=== PATIENT | female | born 1925 | race Caucasian/White ===

== ENCOUNTER 2017-01-04 16:10 | Emergency (ER) | payer OTHER, MEDICARE ==
[~2017-01-04 16:10] MED LIST: ASPI-435 PO; ATOR-22 PO; CALCTAB13 PO; COEN1CAP17 PO; LOSA100T65 PO; PROP120C PO; TMB/100 PO
[2017-01-04 16:16] VITALS: TEMP 36.6; Ht 160 cm
[2017-01-04] MEDS ORDERED: SODIUM CHLORIDE 0.9% 1000ML 1,000 ML IV STA (16:58)
[2017-01-04] MEDS ORDERED: MECLIZINE HCL 25 MG TAB PO STA (16:58)
[2017-01-04] MEDS ORDERED: HydrALAZINE HCL 20 MG/ML VIAL IV. STA (17:00)
--- NOTE | 2017-01-04 17:00 | EMERGENCY ROOM VISIT NOTE ---
History Report prepared by [place]: Luis Patel Under the Supervision of: Dr. Chivo Kaplan M.D. First contact with patient: 16:48 Chief Complaint: DIZZY Stated Complaint: DIZZY;NAUSEA;HIGH BLOOD PRESSURE Nursing Triage Summary: Dizzy and nausea all day. States started today. History of Present Illness The patient is an 89 year old female who presents to the Emergency Room with complaints of intermittent dizzy spells that started this morning. Per the patient's daughter, the patient started to not feel well earlier in the week. The patient says that starting after breakfast, she started having "vertigo dizzy spells" with nausea where the room is spinning and she feels like she is "going around in circles". The patient adds that she has had a bit of a headache and she did vomit once today. She says that she currently has no nausea but has dizziness if she turns her head too fast. The patient states that she still has been able to walk today. She denies any weakness, loss of consciousness, numbness, urinary symptoms, rashes or fevers. Any speech difficulties were denied on behalf of the patient. The patient says that her blood pressure fluctuates often, but she did take her Losartan this morning. The patient adds that she took her Flecainide and Propranolol this morning. She has no history of strokes and she is not on any blood thinners. Source of History: patient, family Onset: This morning Position: other (global - dizzy) Quality: other (room spinning) Timing: intermittent Modifying Factors (Worsening): movement Associated Symptoms: + headache, + nausea, + vomiting, No LOC, No fevers, No urinary symptoms, No weakness, No numbness, No rash Note: Associated symptoms: Speech difficulties denied. Review of Systems See HPI for pertinent positives & negatives. A total of 10 systems reviewed and were otherwise negative. Past Medical & Surgical Medical Problems: (1) Afib (2) Glacuoma (3) Hypertension Surgical Problems: (1) H/O bilateral hip replacements Family History Diabetes mellitus Hypertension Social History Smoking Status: Never Smoker Drug Use: none Marital Status: Housing Status: lives with family Occupation Status: retired Current/Historical Medications Scheduled Aspirin (Aspirin 81), 81 MG PO DAILY Cephalexin Monohydrate (Keflex), 500 MG PO TID Coenzyme Q10 (Ubidecarenone) (Co Q 10), 100 MG PO DAILY Flecainide Acetate (Tambocor), 100 MG PO Q12 Losartan Potassium (Cozaar), 100 MG PO DAILY Miscellaneous Medications Propranolol Hcl (Propranolol Hcl Er), 120 MG PO Allergies Coded Allergies: Meperidine (Verified Adverse Reaction, Intermediate, TACHYCARDIA, 01/04/17) Codeine (Verified Adverse Reaction, Mild, DIZZY, NAUSEA, 01/04/17) Physical Exam Vital Signs Date Time Temp Pulse Resp B/P (MAP) Pulse Ox O2 Delivery O2 Flow Rate FiO2 01/04/17 19:44 66 20 144/54 96 Room Air 01/04/17 18:37 66 20 149/59 98 Room Air 01/04/17 17:40 67 20 165/57 97 Room Air 01/04/17 16:16 36.6 65 18 218/77 99 Room Air Physical Exam GENERAL: Patient is mildly dehydrated appearing and in no acute distress. HEENT: No acute trauma, normocephalic atraumatic, mucous membranes moist, no nasal congestion, no scleral icterus. EARS: TM's clear bilaterally. NECK: No stridor, no adenopathy, no meningismus, trachea is midline. LUNGS: No dyspnea. Clear to auscultation and equal bilaterally. No wheeze, no rhonchi. HEART: Regular rate and rhythm. No murmurs, rubs, gallops appreciated. ABDOMEN: Soft, nontender, bowel sounds positive, no masses appreciated, no peritonitis. BACK: No midline tenderness, no CVA tenderness EXTREMITIES: Normal motion all extremities, no cyanosis, no edema. NEUROLOGIC: Alert and oriented, no acute motor or sensory deficits, no focal weakness, cranial nerves grossly intact. SKIN: No rash, no jaundice, no diaphoresis. Medical Decision & Procedures ER Provider Diagnostic Interpretation: Radiology results and stated below per my review and radiologist interpretation: CT OF THE HEAD WITHOUT CONTRAST CLINICAL HISTORY: New onset vertigo. COMPARISON STUDY: Head CT December 18, 2013. CT DOSE: 537.48 mGy.cm TECHNIQUE: Helical axial images of the head were obtained without IV contrast. Automated exposure control was utilized for the study. A dose lowering technique was utilized adhering to the principles of ALARA. FINDINGS: No acute intracranial hemorrhage, midline shift or mass effect is present. Brain volume is normal for age. Ventricular system is stable. Basilar cisterns are patent. There are no extra-axial collections. White-white differentiation is preserved. There are no CT findings to suggest acute dural sinus thrombosis or acute territorial infarct. There is minimal mucosal thickening of the ethmoid sinuses. There are no significant calvarial abnormalities. IMPRESSION: No acute intracranial findings. Electronically signed by: Yogesh Mojica M.D. 01/04/2017 6:20 PM Dictated Date/Time: 01/04/2017 6:18 PM CHEST ONE VIEW PORTABLE CLINICAL HISTORY: Vertigo COMPARISON STUDY: Chest radiograph December 18, 2013. FINDINGS: Lung volumes are normal. There is no pneumothorax or pleural effusion. Linear bibasilar opacities suggest atelectasis. There is no evidence of pulmonary edema. Cardiomediastinal silhouette is stable. IMPRESSION: No acute cardiopulmonary findings. Electronically signed by: Yogesh Mojica M.D. 01/04/2017 6:06 PM Dictated Date/Time: 01/04/2017 6:05 PM Laboratory Results 01/04/17 17:10 Red Blood Count 3.90, Mean Corpuscular Volume 97.9, Mean Corpuscular Hemoglobin 32.6, Mean Corpuscular Hemoglobin Concent 33.2, Mean Platelet Volume 10.5, Neutrophils (%) (Auto) 86.0, Lymphocytes (%) (Auto) 8.7, Monocytes (%) (Auto) 3.7, Eosinophils (%) (Auto) 1.3, Basophils (%) (Auto) 0.2, Neutrophils # (Auto) 7.15, Lymphocytes # (Auto) 0.72, Monocytes # (Auto) 0.31, Eosinophils # (Auto) 0.11, Basophils # (Auto) 0.02 01/04/17 17:10 Test 01/04/17 17:10 01/04/17 18:45 White Blood Count 8.32 K/uL (4.8-10.8) Red Blood Count 3.90 M/uL (4.2-5.4) Hemoglobin 12.7 g/dL (12.0-16.0) Hematocrit 38.2 % (37-47) Mean Corpuscular Volume 97.9 fL (80-100) Mean Corpuscular Hemoglobin 32.6 pg (25-34) Mean Corpuscular Hemoglobin Concent 33.2 g/dl (32-36) Platelet Count 166 K/uL (130-400) Mean Platelet Volume 10.5 fL (7.4-10.4) Neutrophils (%) (Auto) 86.0 % Lymphocytes (%) (Auto) 8.7 % Monocytes (%) (Auto) 3.7 % Eosinophils (%) (Auto) 1.3 % Basophils (%) (Auto) 0.2 % Neutrophils # (Auto) 7.15 K/uL (1.4-6.5) Lymphocytes # (Auto) 0.72 K/uL (1.2-3.4) Monocytes # (Auto) 0.31 K/uL (0.11-0.59) Eosinophils # (Auto) 0.11 K/uL (0-0.5) Basophils # (Auto) 0.02 K/uL (0-0.2) RDW Standard Deviation 46.2 fL (36.4-46.3) RDW Coefficient of Variation 12.9 % (11.5-14.5) Immature Granulocyte % (Auto) 0.1 % Immature Granulocyte # (Auto) 0.01 K/uL (0.00-0.02) Anion Gap 3.0 mmol/L (3-11) Estimated GFR () 46.4 Estimated GFR (Non- 40.0 BUN/Creatinine Ratio 17.6 (10-20) Calcium Level 8.9 mg/dl (8.5-10.1) Total Bilirubin 0.7 mg/dl (0.2-1) Aspartate Amino Transf (AST/SGOT) 18 U/L (15-37) Alanine Aminotransferase (ALT/SGPT) 27 U/L (12-78) Alkaline Phosphatase 70 U/L (45-117) Troponin I < 0.015 ng/ml (0-0.045) Total Protein 7.6 gm/dl (6.4-8.2) Albumin 3.7 gm/dl (3.4-5.0) Globulin 3.9 gm/dl (2.5-4.0) Albumin/Globulin Ratio 0.9 (0.9-2) Urine Color YELLOW Urine Appearance CLEAR (CLEAR) Urine pH 8.0 (4.5-7.5) Urine Specific Ava 1.016 (1.000-1.030) Urine Protein 1+ (NEG) Urine Glucose (UA) TRACE (NEG) Urine Ketones TRACE (NEG) Urine Occult Blood NEG (NEG) Urine Nitrite POS (NEG) Urine Bilirubin NEG (NEG) Urine Urobilinogen NEG (NEG) Urine Leukocyte Esterase NEG (NEG) Urine WBC (Auto) 1-5 /hpf (0-5) Urine RBC (Auto) 0-4 /hpf (0-4) Urine Hyaline Casts (Auto) 0 /lpf (0-5) Urine Epithelial Cells (Auto) 10-20 /lpf (0-5) Urine Bacteria (Auto) 4+ (NEG) Laboratory results as reviewed by me. Medications Administered Medications (Trade) Dose Ordered Sig/Dorothy Route Start Time Stop Time Status Last Admin Dose Admin Sodium Chloride 1,000 ml @ 999 mls/hr Q1H1M STAT IV 01/04/17 16:58 01/04/17 17:58 DC 01/04/17 17:27 999 MLS/HR Meclizine HCl (Antivert Tab) 12.5 mg NOW STAT PO 01/04/17 16:58 01/04/17 17:00 DC 01/04/17 17:27 12.5 MG Hydralazine HCl (HydrALAZINE INJ) 10 mg NOW STAT IV. 01/04/17 17:00 01/04/17 17:01 DC 01/04/17 17:27 10 MG Cephalexin Monohydrate (Keflex Cap) 500 mg NOW ONCE PO 01/04/17 19:45 01/04/17 19:46 DC 01/04/17 19:56 500 MG Meclizine HCl (Antivert 25MG Home Pack) 1 homepack UD ONCE PO 01/04/17 19:45 01/04/17 19:46 DC 01/04/17 19:56 1 HOMEPACK ECG Indication: nausea Rate (beats per minute): 59 Rhythm: sinus bradycardia Findings: no acute ischemic change, no ectopy ED Course 1648: The patient was evaluated in room B3B. A complete history and physical exam was performed. 1657: Ordered Antivert Tab 12.5 mg PO, NSS 1000 ml @ 999 mls/hr IV. 1699: Ordered Hydralazine Inj 10 mg IV. 1833: I revaluated the patient and she feels much better and has no further dizziness. Her blood pressure is in the 140s systolic. 1932: I reevaluated the patient and she is feeling fine and would like to go home. I advised her to follow up with her primary care physician regarding her blood pressure and rechecking her urine. I discussed with her and her daughter- in-law at length about symptoms that would require emergency return, including but no limited to stroke symptoms. The patient will be discharged. 1944: Ordered Antivert 25MG Home Pack 1 homepack PO, Keflex Cap 500 mg PO. Medical Decision Differential diagnoses include Benign positional vertigo, Dehydration, Hypovolemia, Anemia, Tumor, Infection, Hypoglycemia, Electrolyte abnormalities, Cardiac sources, Intracerebral event, Toxicologic, Neurologic, as well as others were entertained. 89 yr old female arrives with vertiginous symptoms, hypertension and fatigue over last few days. Notes no urinary burning but has frequent urination secondary to prolapsed bladder. She notes no weakness, slurred speech nor facial droop. Daughter at bedside notes she is without these as well. She on talking does talk a bit out of right side of mouth though no weakness left face , she attributes this to new, poorly fitting dentures. BP easily controlled. She is feeling much better and in no distress. Work-up benign other than there are 4+ bacteria plus nits in urine, thus I suspect underlying UTI, which may be cause of all of this. Stressed rest (states she overworks daily), fluids, and follow up with PCP. Keflex with PRN to go meclizine. Reviewed at length symptoms and findings requiring RTED. Patient comfortable with plan. Medication Reconcilliation Current Medication List: was personally reviewed by me Blood Pressure Screening Patient's blood pressure: Elevated blood pressure Blood pressure disposition: Referred to PCP Impression Primary Impression: Urinary tract infection Additional Impressions: Vertigo Hypertension Scribe Attestation The scribe's documentation has been prepared under my direction and personally reviewed by me in its entirety. I confirm that the note above accurately reflects all work, treatment, procedures, and medical decision making performed by me. Departure Information Dispostion Home / Self-Care Prescriptions Cephalexin Monohydrate (Keflex) 500 Mg Cap 500 MG PO TID for 7 Days, #21 CAP Prov: Chivo Kaplan M.D. 01/04/17 Referrals Last Rowell MD (PCP) Patient Instructions ED Vertigo Unspecified, My [facility] Additional Instructions Your blood pressure was elevated during this visit. This is quite common in many people who are being evaluated in the Emergency Department for many reasons. However, it is important that you have your Primary Care Provider recheck your blood pressure and discuss whether treatment will be needed. retirement elevated blood pressure can lead to strokes, heart attacks, kidney failure amongst other medical issues. If you develop severe headaches, chest pain, weakness in arms or legs, or other concerning symptoms call 911. Problem Qualifiers Primary Impression: Urinary tract infection Urinary tract infection type: site unspecified Hematuria presence: without hematuria Qualified Codes: N39.0 - Urinary tract infection, site not specified Additional Impressions: Hypertension Hypertension type: unspecified Qualified Codes: I10 - Essential (primary) hypertension
[2017-01-04 17:20] LABS: BASO % 0.2 %; BASO ABS # 0.02 K/uL (0-0.2); COMPLETE YES; EOS % 1.3 %; HEMATOCRIT 38.2 % (37-47); IG% 0.1 %; LYMPH % 8.7 %; LYMPH ABS # 0.72 K/uL (1.2-3.4); MEAN CELL VOLUME 97.9 fL (80-100); MEAN CORPUSCULAR HEMOGLOBIN 32.6 pg (25-34); MEAN CORPUSCULAR HGB CONC 33.2 g/dl (32-36); MEAN PLATELET VOLUME 10.5 fL (7.4-10.4); MONO % 3.7 %; PLATELET COUNT 166 K/uL (130-400); WHITE BLOOD COUNT 8.32 K/uL (4.8-10.8)
[2017-01-04 17:40] LABS: ALT/SGPT 27 U/L (12-78); AST/SGOT 18 U/L (15-37); BLOOD UREA NITROGEN 21 mg/dl (7-18); BUN/CREATININE RATIO 17.6 (10-20); CALCIUM 8.9 mg/dl (8.5-10.1); CARBON DIOXIDE 31 mmol/L (21-32); CHLORIDE 104 mmol/L (98-107); GLUCOSE 142 mg/dl (70-99); POTASSIUM 4.2 mmol/L (3.5-5.1); SODIUM 138 mmol/L (136-145)
[2017-01-04 17:44] LABS: ALB/GLOB RATIO 0.9 (0.9-2); ALKALINE PHOSPHATASE 70 U/L (45-117)
--- NOTE | 2017-01-04 18:07 | DIAGNOSTIC IMAGING REPORT ---
CHEST ONE VIEW PORTABLE CLINICAL HISTORY: Vertigo COMPARISON STUDY: Chest radiograph December 18, 2013. FINDINGS: Lung volumes are normal. There is no pneumothorax or pleural effusion. Linear bibasilar opacities suggest atelectasis. There is no evidence of pulmonary edema. Cardiomediastinal silhouette is stable. IMPRESSION: No acute cardiopulmonary findings. Electronically signed by: Yogesh Mojica M.D. 01/04/2017 6:06 PM Dictated Date/Time: 01/04/2017 6:05 PM
--- NOTE | 2017-01-04 18:21 | DIAGNOSTIC IMAGING REPORT ---
CT OF THE HEAD WITHOUT CONTRAST CLINICAL HISTORY: New onset vertigo. COMPARISON STUDY: Head CT December 18, 2013. CT DOSE: 537.48 mGy.cm TECHNIQUE: Helical axial images of the head were obtained without IV contrast. Automated exposure control was utilized for the study. A dose lowering technique was utilized adhering to the principles of ALARA. FINDINGS: No acute intracranial hemorrhage, midline shift or mass effect is present. Brain volume is normal for age. Ventricular system is stable. Basilar cisterns are patent. There are no extra-axial collections. White-white differentiation is preserved. There are no CT findings to suggest acute dural sinus thrombosis or acute territorial infarct. There is minimal mucosal thickening of the ethmoid sinuses. There are no significant calvarial abnormalities. IMPRESSION: No acute intracranial findings. Electronically signed by: Yogesh Mojica M.D. 01/04/2017 6:20 PM Dictated Date/Time: 01/04/2017 6:18 PM
[2017-01-04 19:03] LABS: URINE APPEARANCE CLEAR (CLEAR); URINE BILIRUBIN NEG (NEG); URINE COLOR YELLOW; URINE NITRITE POS (NEG); URINE SPECIFIC GRAVITY 1.016 (1.000-1.030); UROBILINOGEN NEG (NEG); ZZUR CULT IF INDIC CLEAN CATCH YES
[2017-01-04 19:08] LABS: MANUAL MICROSCOPIC REQUIRED? NO; REVIEW REQ? NO; SULFASALICYLIC ACID POS (NEG)
[2017-01-04] MEDS ORDERED: CEPH500C PO (19:38)
[2017-01-04 19:44] VITALS: BP 144/54; PULSE 66; O2SAT 96
[2017-01-04] MEDS ORDERED: MECLIZINE HCL 25MG HOME PACK PO ONE (19:45)
[2017-01-04] MEDS ORDERED: CEPHALEXIN MONOHYDRATE 250 MG CAP PO ONE (19:45)
--- NOTE | 2017-01-06 12:50 | Pharmacy Progress Note ---
ED Pharmacist Culture FollowUp Date of Service: Jan 06, 2017. Patient was sent home with a prescription for cephalexin, which should cover the E. coli growing from the patient's urine culture, based on reported sensitivity to cefazolin.
== END 2017-01-04 20:00 | disposition home or self-care (01) ==
LOC: C.EDB 16:12
DX: N39.0 Urinary tract infection, site not specified (principal); R42 Dizziness and giddiness; R11.0 Nausea; I10 Essential (primary) hypertension; Z79.899 Other long term (current) drug therapy; I48.91 Unspecified atrial fibrillation

== ENCOUNTER → 2017-01-31 | Outpatient (CLI) | payer OTHER, MEDICARE ==
[~2017-01-31] MED LIST changes: -ATOR-22 PO; -CALCTAB13 PO
[2017-01-31 12:07] LABS: CHOLESTEROL/HDL RATIO 3.1
== END | disposition home or self-care (01) ==
LOC: C.LAB1850 09:57
PROVIDERS: ATTEND Internal Medicine Cardiovascular Disease
DX: I10 Essential (primary) hypertension (principal); E78.5 Hyperlipidemia, unspecified